=== PATIENT | male | born 1995 | race Caucasian/White ===

== ENCOUNTER 2017-10-31 15:02 | Emergency (ER) | payer OTHER | END 2017-10-31 15:55 | disposition home or self-care (01) | LOC: E/R 15:55 | DX: Z76.0 Encounter for issue of repeat prescription (principal) | CPT/HCPCS: 99281; Z7502 ==

== ENCOUNTER 2017-12-24 21:33 | Emergency (ER) | payer OTHER ==
[2017-12-25] MEDS: DIPHTH/TET/ACEL PERTUSS (ADULT) 0.5 ML VIAL IM* (01:50)
== END 2017-12-25 02:08 | disposition home or self-care (01) ==
LOC: FTE 21:33
DX: S01.01XA Laceration without foreign body of scalp, initial encounter (principal); J45.909 Unspecified asthma, uncomplicated; W22.8XXA Striking against or struck by other objects, initial encounter; Y92.89 Other specified places as the place of occurrence of the external cause; Z23 Encounter for immunization
CPT/HCPCS: 12002; 90471; 90715; 99283-25

== ENCOUNTER 2017-12-31 22:47 | Emergency (ER) | payer OTHER | END 2018-01-01 01:29 | disposition home or self-care (01) | LOC: FTE 22:47 | DX: M25.561 Pain in right knee (principal); J45.909 Unspecified asthma, uncomplicated | CPT/HCPCS: 99283 ==

== ENCOUNTER 2018-11-03 17:29 | Emergency (ER) | payer OTHER ==
[2018-11-03] MEDS: KETOROLAC 30 MG INJ IM (22:01)
== END 2018-11-04 00:11 | disposition home or self-care (01) ==
LOC: FTE 11-04 00:11
DX: S69.91XA Unspecified injury of right wrist, hand and finger(s), initial encounter (principal); J45.909 Unspecified asthma, uncomplicated; W21.05XA Struck by basketball, initial encounter; Y92.310 Basketball court as the place of occurrence of the external cause
CPT/HCPCS: 29125; 73110-RT; 73130-RT; 99283-25